=== PATIENT | male | born 1990 | race Caucasian/White ===

== ENCOUNTER 2017-06-20 22:00 | Emergency (ER) | payer MEDICAID ==
[~2017-06-20] VITALS: Ht 179.1 cm; Wt 81.6 kg
[~2017-06-20 22:00] MED LIST: AUGMENTIN 875 M1 TAB PO; CIPRO 500MG TA500 MG PO; COLCHICINE 0.60.6 MG PO; DARVOCET-N 1001 EACH PO; FLAGYL 500MG.500 MG PO; FLAGYL500 MG PO; IBUPROFEN800 MG PO; INDOCIN25 M1 PO; KEFLEX 500MG.500 MG PO; LORTAB 5/500 501 TAB PO; MECLIZINE25 MG PO; MEDROL 4MG. DOSE4 MG PO; NAPROSYN 500MG500 MG PO; NOMEDS; NOMEDS XX; OMNICEF 300 MG300 MG PO; PREDNISONE 20MG20 MG PO; ULTRAM50 MG PO; VOLTAREN75 MG PO; WELLBUTRIN 150150 MG PO; ZITHROMAX Z PA250 MG PO
[2017-06-20 23:09] LABS: HEMOGLOBIN 12.4 g/dL (14.1-18.0); LYMPH # 1.5 K/mm3 (0.7-4.5); LYMPH % 16.8 % (10-50)
[2017-06-20 23:38] LABS: BUN 10 mg/dL (7-18)
[2017-06-20 23:41] LABS: GFR (ESTIMATED) 67 ML/MIN (>60)
[2017-06-21] MEDS ORDERED: PREDNISONE 20MG20 MG PO (00:09)
--- NOTE | 2017-06-21 00:10 | Emergency Room Report ---
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 N Clinical Suspician of Infection? N Mental Status: 1 - Regular (Normal Baseline) Sepsis Risk:Low Sepsis Risk Have you (or family members/close friends) recently traveled outside the [place]? N If Yes, where/when: Have you had exposure to infectious disease within the past month? TB? Other? Specify: Source patient, RN notes reviewed, family, old records Exam Limitations no limitations Comment rt sided chest pain todsay w/o trauma/fever or rash and no recent illness - pt with element of insp illness and no hemoptysis- pt with recent visit to [facility] ed with neg w/u on saturday Cardiac Chest Pain Chest pain indicative of cardiac No Timing/Duration this evening Severity moderate ALLERGIES Coded Allergies: No Known Drug Allergies (NKDA) (06/20/17) Home Medications Reported Medications No Home Medications (NO HOME MEDICATIONS) 1 EACH XX ONCE History Medical History General CAD? No Angina: No [place]: No Hypertension? No Hyperlipidemia? No CHF? No DVT? No PE? No COPD? No Asthma? No Anemia? No GERD? No Gastric ulcers? No GI Bleed? No Hernia? Yes Thyroid Problems? No Hypothyroidism? No CVA? No Seizures? No Diabetes? No Insulin Dependent: No Insulin Pump: No Home FSBS? No Renal Insuffiency? No End Stage Renal Disease? No UTI? No Stones? No BPH? No GB Disease: No Nephritic Syndrome? No Asplenia? No Hepatitis? No Sickle Cell Disease? No Arthritis? No Migraines? No Cataracts? No Glaucoma? No MRSA? No HIV? No TB? No Anxiety? No Depression? No Cancer? No Immunization Hx DT/Tetanus 5-10 Years Ago Flu REFUSES Pneumonia NEVER Surgical Hx Previous Surgery?Y Hernia Repair SKIN GRAFT OF LEFT FINGER Family History Family Hx Diabetes Yes CAD Yes Hypertension Yes Hyperlipidemia Yes Cancer No TB No Social History Smoking Hx Smoker: Never Smoker Tobacco: No Packs/day < 1 Pack Alcohol Alcohol: No Drugs none Review of Systems All Other Systems Reviewed and Negative Constitutional denies fever Eyes denies drainage ENT denies: ear discharge, epistaxis, throat pain. Respiratory denies cough, denies shortness of breath, denies wheezing Cardiovascular see HPI, chest pain, denies palpitations, denies syncope Gastrointestinal denies abdominal pain, denies diarrhea, denies vomiting Genitourinary denies: dysuria, frequency, hesitancy, hematuria. Musculoskeletal denies back pain, denies joint pain, denies joint swelling, denies neck pain Skin denies rash Psychiatric/Neurological denies headache, denies seizure Physical Exam Vital Signs Vital Signs Date Time Temp Pulse Resp B/P Pulse O2 O2 Flow FiO2 Ox Delivery Rate 06/21 0005 71 20 128/77 99 06/20 2312 98.0 70 10 131/83 97 06/20 2208 98.0 91 12 121/90 97 - WBC >12,000 or <4,000 or 10% bands? 2 or more SIRS Criteria Met? B/P:128/77 MAP:100 Creatinine >2.0? UA output<0.5ml/kg/hr for 2 hrs? Platelet count >100,000? Lactate >2.0mmol/1? INR >1.2 or PTT > than 60 sec? Evidence of Organ Dysfunction? Provider documented clinical suspician of infection? N Sepsis Criteria Count: 1 Sepsis Risk: Low Sepsis Risk General Appearance no apparent distress Eye Exam - bilateral eye PERRL, bilateral eye EOMI Ear, Nose, Throat normal ENT inspection Neck supple Respiratory Status No: respiratory distress. Lung Sounds bilateral: lungs clear. 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 No Results/Orders Laboratory Tests 06/20/17 2300: Sodium 142, Potassium 3.7, Chloride 104, Carbon Dioxide 31, BUN 10, Creatinine 1.3, Estimated Creat Clear 100, Estimated GFR (MDRD) 67, Glucose 95, Calcium 9.1 , Total Bilirubin 0.5, AST 20, ALT 30, Alkaline Phosphatase 58, Creatine Kinase 96, CK-MB (CK-2) Rel Index 0.5, CK and CKMB Interp < 0.5, Troponin I < 0.02, Total Protein 7.6, Albumin 4.2, Globulin 3.4 H, Albumin/Globulin Ratio 1.2, WBC 8.8, RBC 3.99 L, Hgb 12.4 L, Hct 36.1 L, MCV 90.6, RDW 12.9, Plt Count 192, MPV 9.4, Gran % 76.5, Gran # 6.8, Lymphocytes % 16.8, Monocytes % 5.5, Eosinophils % 1.0, Basophils % 0.2, Lymphocytes # 1.5, Monocytes # 0.5, Eosinophils # 0.1, Basophils # 0.0, PUBS MCHC 34.4, MCH 31.1 Current Medication Orders Sig/Garry Start time Last Medication Dose Route Stop Time Status Admin Aspirin 324 MG ONCE ONE 06/20 2230 DC 06/20 PO 06/20 Aspirin 0 .STK-MED ONE 06/20 2223 DC .ROUTE Orders Procedure Date/time Status 12 LEAD EKG-DOVSON (INITIAL) 06/20 2220 Active ELECTROCARDIOGRAM REQUEST 06/20 2220 Active CHEST(2 VIEWS-NOT PORTABLE) 06/20 2220 Active CBC WITH AUTO DIFF 06/20 2220 Complete CARDIAC ENZYMES 06/20 2220 Complete CHEM 12 PROFILE 06/20 2220 Complete CM/EKG CM/traffic rate computer Rhythm Normal Sinus Rhythm EKG no evid. of ischemic chgs XRAY/CT/US XRAY/CT/US XRAY chest XR interpretation by reviewed by me Xray Results normal/NAD Departure Departure Time of Disposition 0008 Disposition DC Home or Self Care(routine) Clinical Impression Primary Impression: Pleurisy Condition STABLE Patient Instructions DI for Pleurisy Additional Instructions use meds and see pcp for follow up Discharge Counseling Counseled pt/family regarding diagnosis, test results, medications/RX, follow up needs Prescriptions Current Visit Scripts Prednisone (Prednisone 20MG) 20 MG PO BID #10 TAB ED Critical Care Critical Care No at 0009
[2017-06-21 00:30] VITALS: BP 143/75
--- NOTE | 2017-06-21 08:14 | RADIOLOGY REPORT PS360 ---
CHEST(2 VIEWS-NOT PORTABLE) HISTORY: CHEST PAIN ORDERING PHYSICIAN: Inocencio Carrillo MD PATIENT AGE: 26 years COMPARISON: PA and lateral chest 01/25/2014 FINDINGS: The cardiomediastinal silhouette and pulmonary vascularity are within normal limits. The lungs are clear without infiltrates, suspicious nodules, or pleural effusions. No acute bony abnormalities. IMPRESSION: Negative chest, no acute finding
[2017-06-22] MEDS ORDERED: FLEXERIL10 MG PO (18:31)
[2017-06-22] MEDS ORDERED: NAPROXEN SODIU500 MG PO (18:31)
== END 2017-06-21 00:32 | disposition home or self-care (01) ==
LOC: ER 22:00
PROVIDERS: Emergency Medicine
DX: R09.1 Pleurisy (principal)

== ENCOUNTER 2017-06-22 16:35 | Emergency (ER) | payer MEDICAID ==
[~2017-06-22] VITALS: Ht 179.1 cm; Wt 81.6 kg
[2017-06-22 17:01] LABS: URINE BILIRUBIN - DIPSTICK NEGATIVE (NEG); URINE BLOOD NEGATIVE (NEG)
--- NOTE | 2017-06-22 17:25 | Emergency Room Report ---
History of Present Illness Time Seen by [id number] Presenting Problem in Triage Pt arrived:Walked Presenting Problem:PT STATES PAIN TO R SIDE AND BACK. STATES VOMITING. DENIES INJURY OR HEAVY LIFTING. STATES NO BM FOR A COUPLE OF DAYS. 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 N Clinical Suspician of Infection? N Mental Status: 1 - Regular (Normal Baseline) Sepsis Risk:Low Sepsis Risk Have you (or family members/close friends) recently traveled outside the [facility]? N If Yes, where/when: Have you had exposure to infectious disease within the past month? TB? Other? Specify: Patient with right sided muscular pain, positional over the last week. Seen at OSH in [place], [place], six days ago then again in this ED on 06/20/17 with EKG and CXR normal, as well as cardiac enzymes. He is right handed and works at [employer]. He denies rash. No SOB. He has been taking narcotic Rx this week and is now constipated and nauseated. No abdominal pain. No josh chest pain. No recent travel, no calf pain, no personal or FH of coaguloapathy, sudden , or embolism. ALLERGIES Coded Allergies: No Known Allergies (06/22/17) Home Medications Reported Medications No Home Medications (NO HOME MEDICATIONS) 1 EACH XX ONCE History Medical History General CAD? No Angina: No [place]: No Hypertension? No Hyperlipidemia? No CHF? No DVT? No PE? No COPD? No Asthma? No Anemia? No GERD? No Gastric ulcers? No GI Bleed? No Hernia? Yes Thyroid Problems? No Hypothyroidism? No CVA? No Seizures? No Diabetes? No Insulin Dependent: No Insulin Pump: No Home FSBS? No Renal Insuffiency? No End Stage Renal Disease? No UTI? No Stones? No BPH? No GB Disease: No Nephritic Syndrome? No Asplenia? No Hepatitis? No Sickle Cell Disease? No Arthritis? No Migraines? No Cataracts? No Glaucoma? No MRSA? No HIV? No TB? No Anxiety? No Depression? No Cancer? No Immunization Hx DT/Tetanus 5-10 Years Ago Flu REFUSES Pneumonia NEVER Surgical Hx Previous Surgery?Y Hernia Repair SKIN GRAFT OF LEFT FINGER Family History Family Hx Diabetes Yes CAD Yes Hypertension Yes Hyperlipidemia Yes Cancer No TB No Social History Smoking Hx Smoker: Former Smoker Tobacco: No Packs/day < 1 Pack Alcohol Alcohol: No Review of Systems All Other Systems Reviewed and Negative Musculoskeletal see HPI Physical Exam Vital Signs Vital Signs Date Time Temp Pulse Resp B/P Pulse O2 O2 Flow FiO2 Ox Delivery Rate 06/22 1814 16 06/22 1808 58 14 122/57 98 06/22 1708 98.0 65 18 118/81 97 06/22 1653 98.0 65 18 118/81 97 General Appearance normal appearance, WD/WN, no apparent distress Eye Exam - bilateral eye normal exam, bilateral eye PERRL, bilateral eye EOMI Neck normal inspection, non-tender, supple, full range of motion Respiratory Status Yes: trachea midline, chest symmetrical, non tender chest. No: respiratory distress, tender on palpation, use of accessory muscles, pain on inspiration, pain on expiration, productive cough, non productive cough. Lung Sounds bilateral: normal breath sounds, lungs clear. Cardiovascular normal exam, regular rate/rhythm, no peripheral edema, no gallop, no JVD, no murmur, no rub, normal peripheral pulses Gastrointestinal normal bowel sounds, normal exam, non tender, soft, no organomegaly, no pulsatile mass, no guarding, no rebound Back normal inspection, no CVA tenderness, no vertebral tenderness, bowel/ bladder continent, gait normal, muscle spasm (trigger pt R latissimus dorsi), strt leg raising(L)-NML, strt leg raising(R)-NML Extremities non-tender, normal range of motion, normal inspection, normal capillary refill, no calf tenderness, no pedal edema Strength 5 Upper Ext (L), 5 Upper Ext (R), 5 Lower Ext (L), 5 Lower Ext (R) Neurologic alert, normal exam, no motor/sensory deficits, oriented x 3 Glascow Coma Scale Glascow Coma Scale Response Value EYE response: 4 Spontaneously 4 MOTOR response: 6 OBEYS 6 VERBAL response: 5 Oriented & Converses 5 Total 15 Reflexes Reflexes normal Yes Skin intact, normal color, warm/dry (tattoos; no vesicles), no rash cons.w/ shingles Medical Decision Making LABS/Meds/Orders Pt receiving controlled substance in ED? No Results/Orders Laboratory Tests 06/22/17 1655: Urine Color YELLOW, Urine Appearance Clear, Urine pH 6.0, Ur Specific [place] 1.015, Urine Protein >=300, Urine Ketones NEGATIVE, Urine Blood NEGATIVE, Urine Nitrate NEGATIVE, Urine Bilirubin NEGATIVE, Urine Urobilinogen 0.2, Ur Leukocyte Esterase NEGATIVE, Urine Glucose NEGATIVE Current Medication Orders Sig/Garry Start time Last Medication Dose Route Stop Time Status Admin Ketorolac 0 .STK-MED ONE 06/22 1807 DC Tromethamine .ROUTE Ketorolac 60 MG ONCE ONE 06/22 1730 DC 06/22 Tromethamine IM 06/22 1731 1814 Orders Procedure Date/time Status [facility] URINE DIPSTICK 06/22 165 Complete Progress ED Progress Notes Date 06/22/17 Time 182 Comment old record reviewed from prior ED visit. Patient feeling better s/p Toradol. Departure Departure Time of Disposition 1825 Disposition DC Home or Self Care(routine) Clinical Impression Primary Impression: Musculoskeletal back pain Condition STABLE Patient Instructions DI for Musculoskeletal Pain Additional Instructions Naproxen, Flexeril, see family MD of choice on list provided, next week, try moist heat. Avoid narcotics and take magnesium citrate, one bottle from pharmacy over the counter, tonight to help with constipation. Discharge Counseling Counseled pt/family regarding diagnosis, test results, medications/RX, home care, follow up needs Prescriptions Current Visit Scripts NAPROXEN (NAPROXEN 500MG TAB) 500 MG PO BIDP PRN pain #20 TAB Cyclobenzaprine Hcl (Flexeril) 5 MG PO BID PRN spasm #6 TAB ED Critical Care Critical Care No at 1832
--- NOTE | 2017-06-22 17:25 | Emergency Room Report ---
History of Present Illness Time Seen by [id number] Presenting Problem in Triage Pt arrived:Walked Presenting Problem:PT STATES PAIN TO R SIDE AND BACK. STATES VOMITING. DENIES INJURY OR HEAVY LIFTING. STATES NO BM FOR A COUPLE OF DAYS. 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 N Clinical Suspician of Infection? N Mental Status: 1 - Regular (Normal Baseline) Sepsis Risk:Low Sepsis Risk Have you (or family members/close friends) recently traveled outside the [facility]? N If Yes, where/when: Have you had exposure to infectious disease within the past month? TB? Other? Specify: Patient with right sided muscular pain, positional over the last week. Seen at OSH in [place], [place], six days ago then again in this ED on 06/20/17 with EKG and CXR normal, as well as cardiac enzymes. He is right handed and works at [employer]. He denies rash. No SOB. He has been taking narcotic Rx this week and is now constipated and nauseated. No abdominal pain. No josh chest pain. No recent travel, no calf pain, no personal or FH of coaguloapathy, sudden , or embolism. ALLERGIES Coded Allergies: No Known Allergies (06/22/17) Home Medications Reported Medications No Home Medications (NO HOME MEDICATIONS) 1 EACH XX ONCE History Medical History General CAD? No Angina: No [place]: No Hypertension? No Hyperlipidemia? No CHF? No DVT? No PE? No COPD? No Asthma? No Anemia? No GERD? No Gastric ulcers? No GI Bleed? No Hernia? Yes Thyroid Problems? No Hypothyroidism? No CVA? No Seizures? No Diabetes? No Insulin Dependent: No Insulin Pump: No Home FSBS? No Renal Insuffiency? No End Stage Renal Disease? No UTI? No Stones? No BPH? No GB Disease: No Nephritic Syndrome? No Asplenia? No Hepatitis? No Sickle Cell Disease? No Arthritis? No Migraines? No Cataracts? No Glaucoma? No MRSA? No HIV? No TB? No Anxiety? No Depression? No Cancer? No Immunization Hx DT/Tetanus 5-10 Years Ago Flu REFUSES Pneumonia NEVER Surgical Hx Previous Surgery?Y Hernia Repair SKIN GRAFT OF LEFT FINGER Family History Family Hx Diabetes Yes CAD Yes Hypertension Yes Hyperlipidemia Yes Cancer No TB No Social History Smoking Hx Smoker: Former Smoker Tobacco: No Packs/day < 1 Pack Alcohol Alcohol: No Review of Systems All Other Systems Reviewed and Negative Musculoskeletal see HPI Physical Exam Vital Signs Vital Signs Date Time Temp Pulse Resp B/P Pulse O2 O2 Flow FiO2 Ox Delivery Rate 06/22 1814 16 06/22 1808 58 14 122/57 98 06/22 1708 98.0 65 18 118/81 97 06/22 1653 98.0 65 18 118/81 97 General Appearance normal appearance, WD/WN, no apparent distress Eye Exam - bilateral eye normal exam, bilateral eye PERRL, bilateral eye EOMI Neck normal inspection, non-tender, supple, full range of motion Respiratory Status Yes: trachea midline, chest symmetrical, non tender chest. No: respiratory distress, tender on palpation, use of accessory muscles, pain on inspiration, pain on expiration, productive cough, non productive cough. Lung Sounds bilateral: normal breath sounds, lungs clear. Cardiovascular normal exam, regular rate/rhythm, no peripheral edema, no gallop, no JVD, no murmur, no rub, normal peripheral pulses Gastrointestinal normal bowel sounds, normal exam, non tender, soft, no organomegaly, no pulsatile mass, no guarding, no rebound Back normal inspection, no CVA tenderness, no vertebral tenderness, bowel/ bladder continent, gait normal, muscle spasm (trigger pt R latissimus dorsi), strt leg raising(L)-NML, strt leg raising(R)-NML Extremities non-tender, normal range of motion, normal inspection, normal capillary refill, no calf tenderness, no pedal edema Strength 5 Upper Ext (L), 5 Upper Ext (R), 5 Lower Ext (L), 5 Lower Ext (R) Neurologic alert, normal exam, no motor/sensory deficits, oriented x 3 Glascow Coma Scale Glascow Coma Scale Response Value EYE response: 4 Spontaneously 4 MOTOR response: 6 OBEYS 6 VERBAL response: 5 Oriented & Converses 5 Total 15 Reflexes Reflexes normal Yes Skin intact, normal color, warm/dry (tattoos; no vesicles), no rash cons.w/ shingles Medical Decision Making LABS/Meds/Orders Pt receiving controlled substance in ED? No Results/Orders Laboratory Tests 06/22/17 1655: Urine Color YELLOW, Urine Appearance Clear, Urine pH 6.0, Ur Specific [place] 1.015, Urine Protein >=300, Urine Ketones NEGATIVE, Urine Blood NEGATIVE, Urine Nitrate NEGATIVE, Urine Bilirubin NEGATIVE, Urine Urobilinogen 0.2, Ur Leukocyte Esterase NEGATIVE, Urine Glucose NEGATIVE Current Medication Orders Sig/Garry Start time Last Medication Dose Route Stop Time Status Admin Ketorolac 0 .STK-MED ONE 06/22 1807 DC Tromethamine .ROUTE Ketorolac 60 MG ONCE ONE 06/22 1730 DC 06/22 Tromethamine IM 06/22 1731 1814 Orders Procedure Date/time Status [facility] URINE DIPSTICK 06/22 165 Complete Progress ED Progress Notes Date 06/22/17 Time 182 Comment old record reviewed from prior ED visit. Patient feeling better s/p Toradol. Departure Departure Time of Disposition 1825 Disposition DC Home or Self Care(routine) Clinical Impression Primary Impression: Musculoskeletal back pain Condition STABLE Patient Instructions DI for Musculoskeletal Pain Additional Instructions Naproxen, Flexeril, see family MD of choice on list provided, next week, try moist heat. Avoid narcotics and take magnesium citrate, one bottle from pharmacy over the counter, tonight to help with constipation. Discharge Counseling Counseled pt/family regarding diagnosis, test results, medications/RX, home care, follow up needs Prescriptions Current Visit Scripts NAPROXEN (NAPROXEN 500MG TAB) 500 MG PO BIDP PRN pain #20 TAB Cyclobenzaprine Hcl (Flexeril) 5 MG PO BID PRN spasm #6 TAB ED Critical Care Critical Care No at 1832
[2017-06-22] MEDS ORDERED: FLEXERIL10 MG PO (18:31)
[2017-06-22] MEDS ORDERED: NAPROXEN SODIU500 MG PO (18:31)
[2017-06-22 18:47] VITALS: BP 122/57
== END 2017-06-22 18:47 | disposition home or self-care (01) ==
LOC: UTC 16:35 → ER 16:38 → UTC 16:38 → ER 18:47
PROVIDERS: Nurse Practitioner Family
DX: M54.9 Dorsalgia, unspecified (principal); Z87.891 Personal history of nicotine dependence